=== PATIENT | male | born 1980 | race Caucasian/White ===

== ENCOUNTER 2017-02-05 09:40 | Emergency (ER) | payer OTHER ==
[2017-02-05 09:51] VITALS: BP 139/79
--- NOTE | 2017-02-05 10:10 | UC ---
Respiratory Complaint HPI - HPI Summary HPI Summary: pt presents with request for medication refill for his asthma medication. Pt has a PCP but his work schedule has not allowed him to make a timely appointment with his PCP. - History of Current Complaint Chief Complaint: UCMedRefill Stated Complaint: MEDICATION REFILL Time Seen by Provider: 02/05/17 10:01 Hx Obtained From: Patient Severity Initially: Mild Severity Currently: None Aggravating Factors: Allergens Associated Signs And Symptoms: Positive: Negative - Risk Factors Pulmonary Embolism Risk Factors: Recent Travel Cardiac Risk Factors: Negative Pseudomonas Risk Factors: Negative - Allergies/Home Medications Allergies/Adverse Reactions: Allergies Allergy/AdvReac Type Severity Reaction Status Date / Time Eggs or Egg-derived Products Allergy Difficulty Verified 02/05/17 09:46 Breathing PMH/Surg Hx/FS Hx/Imm Hx Previously Healthy: Yes Respiratory History: Asthma - Surgical History Surgical History: None - Family History Known Family History: Negative: Cardiac Disease, Hypertension - Social History Occupation: Employed Full-time Alcohol Use: Rare Substance Use Type: None Smoking Status (MU): Never Smoked Tobacco Review of Systems Constitutional: Negative Skin: Negative Eyes: Negative ENT: Negative Respiratory: Shortness Of Breath, Other - wheezing Cardiovascular: Negative Gastrointestinal: Negative Genitourinary: Negative Motor: Negative Neurovascular: Negative Musculoskeletal: Negative Neurological: Negative Psychological: Negative All Other Systems Reviewed And Are Negative: Yes Physical Exam Triage Information Reviewed: Yes Appearance: Well-Appearing Vital Signs: Initial Vital Signs Temp 97.3 F 02/05/17 09:47 Pulse 62 02/05/17 09:47 Resp 16 02/05/17 09:47 BP 139/79 02/05/17 09:47 Pulse Ox 97 02/05/17 09:47 Eye Exam: Normal Neck exam: Normal Respiratory Exam: Normal Cardiovascular Exam: Normal Musculoskeletal Exam: Normal Neurological Exam: Normal Psychological Exam: Normal Skin Exam: Normal UC Diagnostic Evaluation - Laboratory O2 Sat by Pulse Oximetry: 97 Respiratory Course/Dx - Differential Dx/Diagnosis Differential Diagnosis/HQI/PQRI: Asthma Provider Diagnoses: asthma, medication refill Discharge - Discharge Plan Condition: Stable Disposition: HOME Prescriptions: Albuterol HFA INHALER* [Ventolin HFA Inhaler*] 2 inh INH Q4H PRN #1 mdi PRN Reason: asthma Fluticasone-Salmeterol 100-50* [Advair Diskus 100-50*] 1 puff INH BID #1 diskus Patient Education Materials: Medicine Refill (ED) Referrals: Jules Durán MD [Primary Care Provider] - As Soon As Possible
== END 2017-02-05 10:17 | disposition home or self-care (01) ==
LOC: UCCORT 09:40
DX: J45.909 Unspecified asthma, uncomplicated (principal); Z76.0 Encounter for issue of repeat prescription
CPT/HCPCS: 99212; G0463

== ENCOUNTER 2017-10-25 17:02 | Emergency (ER) | payer BC, OTHER ==
[2017-10-25 18:26] VITALS: BP 120/82
[2017-10-25] MEDS ORDERED: Acetaminophen TAB* 325 MG PO ONE (18:30)
[2017-10-25] MEDS ORDERED: Albuterol/Ipratropium NEB.SOL* Albuterol 2.5 MG/Ipratropium 0.5 MG 3 ML INH ONE (18:31)
--- NOTE | 2017-10-25 19:24 | UC ---
Respiratory Complaint HPI - HPI Summary HPI Summary: pt with h/o asthma. Pt with progressive wheeze since last Thur. + yellow to green sputum + fever last week - resolved no n/v. Pt using MDI with short term relief. 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 Pt's medications reviewed this visit - History of Current Complaint Chief Complaint: UCRespiratory Stated Complaint: CHEST JENNIFER/COUGH/HX ASTHMA Time Seen by Provider: 10/25/17 18:50 Pain Intensity: 1 - Risk Factors Pulmonary Embolism Risk Factors: Negative - Allergies/Home Medications Allergies/Adverse Reactions: Allergies Allergy/AdvReac Type Severity Reaction Status Date / Time MS Eggs or Egg-derived Allergy Difficulty Verified 10/25/17 18:26 Products Breathing [Eggs or Egg-derived Products] Home Medications: Home Medications Dm/PE/Acetaminophen/Chlorphenr [Gnp Cold Head Congestion] 1 tab PO 10/25/17 [ History] PMH/Surg Hx/FS Hx/Imm Hx Previously Healthy: Yes - Surgical History Surgical History: None - Family History Known Family History: Negative: Cardiac Disease, Hypertension - Social History Occupation: Employed Full-time Lives: With Family Alcohol Use: Rare Substance Use Type: None Smoking Status (MU): Never Smoked Tobacco Review of Systems Constitutional: Fever Respiratory: Shortness Of Breath, Cough, Other - wheeze All Other Systems Reviewed And Are Negative: Yes Physical Exam Triage Information Reviewed: Yes Appearance: Well-Appearing, No Pain Distress, Well-Nourished Vital Signs: Initial Vital Signs Temp 97.9 F 10/25/17 18:22 Pulse 89 10/25/17 18:22 Resp 18 10/25/17 18:22 BP 120/82 10/25/17 18:22 Pulse Ox 97 10/25/17 18:22 Eye Exam: Normal Eyes: Positive: Conjunctiva Clear ENT Exam: Normal ENT: Positive: Normal ENT inspection, Hearing grossly normal, Pharynx normal, Nasal congestion, TMs normal, Uvula midline. Negative: Sinus tenderness Dental Exam: Normal Neck exam: Normal Neck: Positive: Supple, Nontender, No Lymphadenopathy Respiratory: Positive: Other: - few scattered wheeze, no rhonci speaking full, easy sentences no accessory muscle use Cardiovascular Exam: Normal Cardiovascular: Positive: RRR, No Murmur, Pulses Normal Abdominal Exam: Normal Abdomen Description: Positive: Nontender, No Organomegaly Bowel Sounds: Positive: Present Musculoskeletal Exam: Normal Musculoskeletal: Positive: Strength Intact Neurological Exam: Normal Neurological: Positive: Alert Psychological Exam: Normal Skin Exam: Normal UC Diagnostic Evaluation - Laboratory O2 Sat by Pulse Oximetry: 97 Re-Evaluation - Re-Evaluation First Eval Change: Improved - pt markedly improved following neb no wheeze states feels better will Rx augmentin gave spacer pred return precautions pt comfortable and in agreement with plan pt mai - advised nearest ED prn Respiratory Course/Dx - Course Course Of Treatment: pt with cough,w heeze and sputum x 1 week. h/o asthma. Will check flu - pt high risk. neb. reassess - Differential Dx/Diagnosis Provider Diagnoses: acute bronchitis. asthma Discharge - Discharge Plan Condition: Stable Disposition: HOME Prescriptions: Amoxicillin/Clavulanate TAB* [Augmentin TAB 875*] 875 mg PO BID #20 tab predniSONE TAB* [Deltasone TAB*] 50 mg PO DAILY #5 tab Patient Education Materials: Acute Bronchitis (ED) Referrals: Jules Durán MD [Primary Care Provider] - 1 Week Additional Instructions: - Stay well hydrated. Drink plenty of non-alcoholic, non-caffinated beverages. - Alternate ibuprofen (Advil, Motrin) 600mg and Tylenol every 3 hours for pain or fever. Take with food. Do NOT take for more than 4-5 days. -Take antibiotics as prescribed until gone - Use your inhaler, 2 puffs every 4 hours for cough and wheeze - today and tomorrow, then every 4 hours as needed. Use the spacer to help get the medication into your lungs - Take prednisone as prescribed - These infections are spread by secretions - do NOT share eating or drinking utensils - clean items you share with other people such as cell phones, computer mouse, TV remote, computer tablets, etc. After you have taken antibiotics for 3 days, change your toothbrush and your pillowcase. -- humidify the air in the room where you sleep - boil water, run a hot steam shower, vaporizer, cups of water by heat register - okay to take over the counter decongestant and cough medication - if you have increased SOB, wheezing, fevers or ANY other concerns it is recommended you get rechecked - your doctor, urgent care or the nearest emergency department
== END 2017-10-25 19:23 | disposition home or self-care (01) ==
LOC: UCCORT 17:02
DX: J20.9 Acute bronchitis, unspecified (principal); J45.909 Unspecified asthma, uncomplicated
CPT/HCPCS: 87502; 99212; A9270-GY; G0463

== ENCOUNTER 2019-07-28 11:51 | Emergency (ER) | payer BC ==
[2019-07-28 12:23] VITALS: BP 131/77
--- NOTE | 2019-07-28 12:32 | UC ---
Respiratory Complaint HPI - HPI Summary HPI Summary: Pt present with c/o worsening cough, nasal congestion and wheezing. Pt has asthma and has been using rescue INH daily for symptoms management. - History of Current Complaint Chief Complaint: UCRespiratory Stated Complaint: COLD COUGH Time Seen by Provider: 07/28/19 12:24 Hx Obtained From: Patient Onset/Duration: Sudden Onset, Lasting Weeks, Still Present Severity Initially: Mild Severity Currently: Moderate Pain Intensity: 0 Character: Cough: Productive Aggravating Factors: Exertion, Deep Breaths, Recumbent Position Alleviating Factors: Nothing Associated Signs And Symptoms: Positive: Chills, Wheezing, URI, Nasal Congestion - Risk Factors Pulmonary Embolism Risk Factors: Negative Cardiac Risk Factors: Negative Pseudomonas Risk Factors: Chronic Lung Disease - asthma Tuberculosis Risk Factors: Negative - Allergies/Home Medications Allergies/Adverse Reactions: Allergies Allergy/AdvReac Type Severity Reaction Status Date / Time egg Allergy Difficulty Verified 07/28/19 12:19 Breathing PMH/Surg Hx/FS Hx/Imm Hx Previously Healthy: Yes Respiratory History: Asthma - Surgical History Surgical History: None - Family History Known Family History: Negative: Cardiac Disease, Hypertension - Social History Occupation: Employed Full-time Lives: With Family Alcohol Use: Rare Substance Use Type: None Smoking Status (MU): Never Smoked Tobacco Have You Smoked in the Last Year: No Review of Systems All Other Systems Reviewed And Are Negative: Yes Constitutional: Positive: Negative Skin: Positive: Negative Eyes: Positive: Negative ENT: Positive: Negative Respiratory: Positive: Shortness Of Breath, Cough Cardiovascular: Positive: Negative Gastrointestinal: Positive: Negative Genitourinary: Positive: Negative Motor: Positive: Negative Neurovascular: Positive: Negative Musculoskeletal: Positive: Negative Neurological: Positive: Negative Psychological: Positive: Negative Is Patient Immunocompromised?: No Physical Exam Triage Information Reviewed: Yes Appearance: Ill-Appearing Vital Signs: Initial Vital Signs Temp 98.4 F 07/28/19 12:19 Pulse 93 07/28/19 12:19 Resp 14 07/28/19 12:19 BP 131/77 07/28/19 12:19 Pulse Ox 98 07/28/19 12:19 Vital Signs Reviewed: Yes Eye Exam: Normal ENT: Positive: Nasal congestion Dental Exam: Normal Neck exam: Normal Respiratory: Positive: No respiratory distress, Decreased breath sounds, Wheezing Cardiovascular Exam: Normal Musculoskeletal Exam: Normal Neurological Exam: Normal Psychological Exam: Normal Skin Exam: Normal Respiratory Course/Dx - Course Course Of Treatment: 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 He states he does not get enough time to sleep and is in contact with many people he expressed concern that his symptoms have worsened and requested an antibiotic. - Differential Dx/Diagnosis Differential Diagnosis/HQI/PQRI: Bronchitis, Exacerbation Of COPD Provider Diagnosis: Exacerbation of asthma, Bronchitis Discharge ED - Sign-Out/Discharge Documenting (check all that apply): Patient Departure All imaging exams completed and their final reports reviewed: No Studies - Discharge Plan Condition: Stable Disposition: HOME Prescriptions: Azithromycin TAB* [Zithromax TAB (Z-FRANCISCO) 250 mg #6 tabs] 2 tab PO .TODAY, THEN 1 DAILY #1 francisco Benzonatate CAP* [Tessalon 100 MG CAP*] 100 mg PO Q8H PRN #30 cap PRN Reason: Cough predniSONE TAB* [Deltasone 20 MG TAB*] 60 mg PO DAILY #12 tab Patient Education Materials: Acute Bronchitis (ED), Bronchospasm (ED) Referrals: Jules Durán MD [Primary Care Provider] - If Needed - Billing Disposition and Condition Condition: STABLE Disposition: Home
== END 2019-07-28 12:52 | disposition home or self-care (01) ==
LOC: UCCORT 11:51
DX: J45.901 Unspecified asthma with (acute) exacerbation (principal); Z91.012 Allergy to eggs
CPT/HCPCS: 99212; G0463